=== PATIENT | female | born 1965 | race African-American/Black ===

== ENCOUNTER 2018-12-07 20:15 | Emergency (ER) | payer OTHER ==
[~2018-12-07] VITALS: Ht 172.7 cm; Wt 104.3 kg
[2018-12-07 20:30] VITALS: Ht 172.7 cm; Wt 104.3 kg
[2018-12-07 21:04] VITALS: BP 153/79
== END 2018-12-07 21:04 | disposition home or self-care (01) ==
LOC: ED 20:15
DX: R00.2 Palpitations (principal); R06.02 Shortness of breath; Z88.6 Allergy status to analgesic agent